=== PATIENT | female | born 2000 | race Caucasian/White ===

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

== ENCOUNTER 2020-04-27 20:28 | Emergency (ER) | payer OTHER ==
[~2020-04-27] VITALS: Ht 157.5 cm; Wt 49.9 kg
[~2020-04-27 20:28] MED LIST: ACETAMINOPHEN-1 EAC1 PO; KEFLEX500 M1 PO; ZOFRAN ODT4 MG PO
[2020-04-27] MEDS ORDERED: BUSPIRONE HCL5 MG PO (20:39)
[2020-04-27 20:51] LABS: ABSOLUTE LYMPHOCYTES 2.4 thou/uL (0.8-5.3); ABSOLUTE MONOCYTES 0.4 thou/uL (0.0-1.2); ABSOLUTE NEUTROPHILS 4.6 thou/uL (1.6-8.1); BASOPHILS 0.7 %; EOSINOPHILS 0.3 %; HEMOGLOBIN 14.8 gm/dL (12.0-15.0); LYMPHOCYTES 32.4 %; MCH 31.3 pg (26.0-34.0); MCHC 35.2 g/dL (28.0-37.0); MCV 88.8 fL (80.0-100.0); MONOCYTES 5.2 %; MPV 8.1 fl. (7.2-11.1); NUCLEATED RBCS 0 /100WBC; PLATELET COUNT* 299 thou/uL (150-400); POLYS 61.4 %; RBC 4.73 mil/uL (4.20-5.00); RDW-CV 12.6 % (10.5-14.5); WBC 7.5 thou/uL (4.0-11.0)
[2020-04-27 21:00] LABS: CALCIUM 9.3 mg/dL (8.5-10.1); CREATININE 1.2 mg/dL (0.6-1.3)
[2020-04-27 21:03] LABS: POTASSIUM 2.8 mmol/L (3.5-5.1)
[2020-04-27 21:05] LABS: ALBUMIN 4.9 g/dL (3.4-5.0); TOTAL BILIRUBIN 0.5 mg/dL (<0.1-1.0); TOTAL PROTEIN 8.4 g/dL (6.4-8.2)
[2020-04-27 21:13] LABS: URINE BILIRUBIN NEGATIVE (Negative); URINE BLOOD NEGATIVE (Negative); URINE CLARITY CLEAR; URINE COLOR YELLOW; URINE GLUCOSE-RANDOM NEGATIVE (Negative); URINE KETONES NEGATIVE (Negative); URINE LEUKOCYTES-REFLEX NEGATIVE (Negative); URINE NITRITE-REFLEX NEGATIVE (Negative); URINE PROTEIN NEGATIVE (Negative); URINE SPECIFIC GRAVITY <= 1.005 (1.005-1.030); URINE UROBILINOGEN 0.2 E.U./dl (0.2-1.0)
[2020-04-27 21:21] LABS: AMP/METHAMP Negative (Negative); BARBITURATES Negative (Negative); BENZODIAZEPINES Negative (Negative); COCAINE Negative (Negative); METHADONE Negative (Negative); OPIATES Negative (Negative); PCP Negative (Negative); THC Negative (Negative)
[2020-04-27 21:23] LABS: ACETAMINOPHEN < 2 ug/mL (10-30); ALCOHOL < 10 mg/dL (<10); SALICYLATE < 2.8 mg/dL (2.8-20.0)
[2020-04-27] MEDS ORDERED: POTASSIUM20 PO (23:18)
[2020-04-27 23:29] VITALS: BP 113/63
--- NOTE | 2020-04-28 08:48 | EKG ---
[place] [address] ELECTROCARDIOGRAM REPORT Name: LEELA MARTI Room: 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
== END 2020-04-27 23:35 | disposition home or self-care (01) ==
LOC: M.ERS 20:28
PROVIDERS: Emergency Medicine Emergency Medical Services
DX: R06.02 Shortness of breath (principal); R42 Dizziness and giddiness; Z79.899 Other long term (current) drug therapy